=== PATIENT | male | born 1990 | race Caucasian/White ===

== ENCOUNTER → 2017-07-03 | Outpatient (CLI) | payer BC ==
[~2017-07-03] MED LIST: AMXSUNK PO; ATV1 PO; CHLO0.12 MT; ESCI10TA17 PO; HYDRELX3 PO
--- NOTE | 2017-07-03 14:43 | DIAGNOSTIC IMAGING REPORT ---
(TESTICULAR) SCROTUM-CONT CLINICAL HISTORY: 27 years-old Male with L TESTICULAR PAIN. Acute left-sided testicular pain COMPARISON STUDY: None available TECHNIQUE: Real-time, grayscale, and color Doppler sonography of the testes and scrotum is performed. Images are reviewed in the transverse and longitudinal planes. FINDINGS: RIGHT HEMISCROTUM: The right testis measures 4.2 x 1.5 x 2.8 cm and the parenchyma appears unremarkable. No intratesticular mass is seen. Normal-appearing arterial inflow is present within the right testicle. Small right epididymal head cyst is noted, 0.6 cm. The right epididymis is heterogeneous with multiple punctate nonshadowing calcifications noted. No definite focal mass or hyperemia. No large right-sided hydrocele or varicocele. LEFT HEMISCROTUM: The left testis measures 4.0 x 1.8 x 2.8 cm and the parenchyma appears unremarkable. No intratesticular mass is seen. Normal-appearing arterial inflow is present within the left testicle. Small left epididymal head cyst is noted, 0.3 cm. No large left-sided hydrocele or varicocele. IMPRESSION: 1. Unremarkable sonographic appearance of the bilateral testicles without evidence of torsion or mass. 2. Heterogeneous appearance of the right epididymis with multiple punctate non-shadowing microcalcifications noted. These are nonspecific findings and may reflect sequela of remote epididymitis. No evidence of acute epididymitis or orchitis. 3. Small bilateral epididymal head cysts. The above report was generated using voice recognition software. It may contain grammatical, syntax or spelling errors. Electronically signed by: Bao Yin M.D. 07/03/2017 2:42 PM Dictated Date/Time: 07/03/2017 2:36 PM
== END | disposition home or self-care (01) ==
LOC: C.ULTR 13:46
PROVIDERS: ATTEND Family Medicine
DX: N50.812 Left testicular pain (principal); N50.89 Other specified disorders of the male genital organs; N50.3 Cyst of epididymis

== ENCOUNTER → 2017-09-14 | Outpatient (CLI) | payer BC | END | disposition home or self-care (01) | LOC: C.RC 09:15 | PROVIDERS: ATTEND Family Medicine | DX: R05 Cough (principal) ==